=== PATIENT | female | born 1995 | race Caucasian/White ===

== ENCOUNTER 2018-11-17 23:21 | Emergency (ER) | payer OTHER ==
[~2018-11-17] VITALS: Ht 167.6 cm; Wt 72.6 kg
[2018-11-17 23:32] VITALS: BP 102/72
--- NOTE | 2018-11-17 23:40 | NUR ---
23 Y/O FEMALE PRESENTS TO ED WITH C/O TOOTH PAIN 8/10 X3 DAYS. HAS APPOINTMENT TO SEE DENTIST IN THE NEXT DAY OR TWO. STATES DEALING WITH TOOTH PAIN BUT CANNOT TAKE PAIN ANY LONGER. NO PAIN TREATMENT AT HOME D/T OF 20 WEEKS. PT STATES FEELING MOVEMENT. NO VAGINAL BLEEDING OR DISCHARGE. VSS. ER MD AWARE. AT BEDSIDE. CONTINUE TO MONITOR.
[2018-11-18] MEDS ORDERED: ACETAMINOPHEN EXTRA STRENGTH 500 MG TAB PO ONE
[2018-11-18 00:23] VITALS: BP 111/86
--- NOTE | 2018-11-18 00:23 | NUR ---
DISCHARGE PAPERS GIVEN TO PT. RX OF AMOXICILLIN AND ACETAMINOPHEN GIVEN. SIDE EFFECTS EXPLAINED. INSTRUCTED TO F/U WITH PCP AND WHEN TO RETURN TO ER. PT STATES PAIN REDUCED TO 6/10 BUT TOLLERABLE. VSS. ALL QUESTIONS ANSWERED.
== END 2018-11-18 00:23 | disposition home or self-care (01) ==
LOC: MED 23:21
DX: O99.612 Diseases of the digestive system complicating pregnancy, second trimester (principal); K08.89 Other specified disorders of teeth and supporting structures; D64.9 Anemia, unspecified; Z3A.20 20 weeks gestation of pregnancy
CPT/HCPCS: 99283

== ENCOUNTER 2019-03-29 14:16 | Inpatient (IN) | payer OTHER ==
[~2019-03-29] VITALS: Ht 167.6 cm; Wt 82.6 kg
[~2019-03-29 14:16] MED LIST: HYDROmorphone 1 MG/ML AMP IVP PRN; NALOXONE 0.4 MG/ML VIAL IVP PRN; ONDANSETRON 4 MG/2 ML VIAL IVP PRN; OXYTOCIN 20 UNITS in LACTATED RINGERS 1,000 ML IV SCH
[2019-03-29] MEDS ORDERED: LACTATED RINGERS 1,000 ML IV SCH (14:38)
[2019-03-29] MEDS ORDERED: CITRIC ACID/SODIUM CITRATE 30 ML UDC PO SCH (14:40)
[2019-03-29] MEDS ORDERED: METOCLOPRAMIDE 10 MG/2 ML INJ VIAL IVP SCH (14:40)
[2019-03-29 15:23] LABS: HEMOGLOBIN 11.8 g/dL (12.0-16.0); RED BLOOD CELL COUNT(AUTO) 4.33 MIL/uL (4.20-5.40); WHITE BLOOD COUNT (AUTO) 7.4 K/uL (4.8-10.8)
[2019-03-29 15:24] LABS: BASOPHILS % (AUTO) 0.3 % (0.0-2.0); EOSINOPHILS % (AUTO) 0.3 % (0.0-4.0); HEMATOCRIT 36.1 % (36-48); LYMPHOCYTES # (AUTO) 1.1 K/uL (2.5-16.5); LYMPHOCYTES % (AUTO) 15.1 % (20.5-51.1); MEAN CORPUSCULAR HEMOGLOBIN 27 pg (27-31); MEAN CORPUSCULAR HGB CONC 33 g/dL (33-37); MEAN CORPUSCULAR VOLUME 83.4 fL (80-94); MONOCYTES # (AUTO) 0.6 K/uL (0.8-1.0); MONOCYTES % (AUTO) 7.9 % (1.7-9.3); NEUTROPHILS # (AUTO) 5.6 K/uL (1.8-7.7); NEUTROPHILS % (AUTO) 76.4 % (42.2-75.2); PLATELET COUNT (AUTO) 181 K/uL (140-450); RED CELL DISTRIBUTION WIDTH 17.4 % (11.6-13.7)
[2019-03-29 15:26] LABS: APPEARANCE,URINE HAZY (CLEAR); BILIRUBIN,URINE 1+ (NEGATIVE); BLOOD, URINE NEGATIVE (NEGATIVE); COLOR,URINE YELLOW (YELLOW); LEUKOCYTE ESTERASE ,URINE NEGATIVE (NEGATIVE); NITRITE, URINE NEGATIVE (NEGATIVE); PH,URINE 5.5 (5.0-9.0); UGLUCOSE NEGATIVE (NEGATIVE)
[2019-03-29 15:41] LABS: ANION GAP 15.7 (8-16); CARBON DIOXIDE 22.1 mmol/L (21-32); CREATININE 0.5 mg/dL (0.6-1.3); POTASSIUM 3.8 mmol/L (3.5-5.1); TOTAL BILIRUBIN 0.4 mg/dL (0.0-1.0)
[2019-03-29 16:00] VITALS: BP 129/83
[2019-03-29] MEDS ORDERED: FERR325E14 PO (16:42)
[2019-03-29] MEDS ORDERED: PNV1TABL5 PO (16:42)
[2019-03-29] MEDS ORDERED: EPINEPHrine 1:1000 1 MG/ML VIAL IV ONE (17:29)
[2019-03-29] MEDS ORDERED: fentaNYL 0.05 MG/ML VIAL ONE (17:41)
[2019-03-29] MEDS ORDERED: MORPHINE PRES FREE 10 MG/10 ML AMP IV ONE (17:42)
[2019-03-29] MEDS ORDERED: NALOXONE 0.4 MG/ML VIAL IVP PRN ×3 (18:15)
[2019-03-29] MEDS ORDERED: diphenhydrAMINE 50 MG/ML VIAL IVP PRN (18:15)
[2019-03-29] MEDS ORDERED: ONDANSETRON 4 MG/2 ML VIAL IVP PRN ×2 (18:15)
[2019-03-29] MEDS ORDERED: NALBUPHINE 10 MG/ML AMP IVP PRN (18:15)
[2019-03-29] MEDS ORDERED: OXYTOCIN 20 UNITS/LR PREMIX 1,000 ML IV ONE (18:24)
[2019-03-29] MEDS ORDERED: CARBOPROST 250 MCG/ML AMP IM PRN (18:45)
[2019-03-29] MEDS ORDERED: OXYTOCIN 10 UNITS in LACTATED RINGERS 1,000 ML IV SCH (19:19)
[2019-03-29] MEDS ORDERED: METHYLERGONOVINE 0.2 MG/ML AMP IM PRN (19:20)
[2019-03-29] MEDS ORDERED: MEASLES, MUMPS, AND RUBELLA 1 VIAL SQVAC PRN (19:20)
[2019-03-30] MEDS ORDERED: KETOROLAC 30 MG/ML VIAL IM/IVP SCH
[2019-03-30] MEDS: KETOROLAC 30 MG/ML VIAL IVP PRN ×2 (00:06→06:34)
[2019-03-30] MEDS ORDERED: OXYTOCIN 20 UNITS/LR PREMIX 1,000 ML IV ONE (01:45)
[2019-03-30] MEDS: OXYTOCIN 20 UNITS in LACTATED RINGERS 1,000 ML IV SCH ×2 (02:03→10:19)
[2019-03-30 06:27] LABS: BASOPHILS % (AUTO) 0.2 % (0.0-2.0); EOSINOPHILS % (AUTO) 0.6 % (0.0-4.0); HEMATOCRIT 30.1 % (36-48); LYMPHOCYTES # (AUTO) 1.2 K/uL (2.5-16.5); LYMPHOCYTES % (AUTO) 18.8 % (20.5-51.1); MEAN CORPUSCULAR HEMOGLOBIN 28 pg (27-31); MEAN CORPUSCULAR HGB CONC 33 g/dL (33-37); MEAN CORPUSCULAR VOLUME 83.6 fL (80-94); MONOCYTES # (AUTO) 0.6 K/uL (0.8-1.0); MONOCYTES % (AUTO) 10.4 % (1.7-9.3); NEUTROPHILS # (AUTO) 4.3 K/uL (1.8-7.7); PLATELET COUNT (AUTO) 123 K/uL (140-450); RED BLOOD CELL COUNT(AUTO) 3.59 MIL/uL (4.20-5.40); WHITE BLOOD COUNT (AUTO) 6.2 K/uL (4.8-10.8)
--- NOTE | 2019-03-30 08:19 | NUR ---
PATIENT HAS BEEN SCREENED AND CATEGORIZED LOW NUTRITION RISK. PATIENT WILL BE SEEN WITHIN 7 DAYS OF ADMISSION. 04/05/[address]
[2019-03-30] MEDS ORDERED: BISACODYL 10 MG SUPP RC SCH (09:00)
[2019-03-30] MEDS ORDERED: oxyCODONE/APAP 5/325 MG 1 TAB TAB PO PRN (14:00)
[2019-03-30] MEDS ORDERED: IBUPROFEN 600 MG TAB PO SCH ×2 (14:00→23:55)
[2019-03-31] MEDS: IBUPROFEN 600 MG TAB PO SCH ×3 (06:11→21:08)
[2019-04-01] MEDS ORDERED: CAMERA MC ONE ×2 (01:26→11:08)
[2019-04-01] MEDS: IBUPROFEN 600 MG TAB PO SCH (05:04)
== END 2019-04-01 15:50 | disposition home or self-care (01) | DRG 540 ==
LOC: MLD 14:16 → MFCC 17:30
PROVIDERS: ADMIT Obstetrics & Gynecology; ATTEND Obstetrics & Gynecology
PROC: 10D00Z1 Extraction of Products of Conception, Low, Open Approach (ICD-10-PCS; principal; 2019-03-30)
DX: O34.211 Maternal care for low transverse scar from previous cesarean delivery (principal); R71.0 Precipitous drop in hematocrit; O69.81X0 Labor and delivery complicated by cord around neck, without compression, not applicable or unspecified; Z37.0 Single live birth; Z3A.40 40 weeks gestation of pregnancy
CPT/HCPCS: 36415; 80053; 81003; 85025; 86592; 86886; 86900; 86901; J0171; J0690; J1200; J1885; J2270; J2405; J2590; J3010; J7060; J7120